=== PATIENT | male | born 1940 | race Caucasian/White ===

== ENCOUNTER 2019-10-29 07:57 | Outpatient (RCR) | payer MEDICARE, BC, SELFPAY ==
[2019-10-29 08:44] VITALS: BP 118/80; PULSE 87; RESP 16; TEMP 36.5; O2SAT 96
[2019-10-29 08:52] VITALS: PULSE 87
--- NOTE | 2019-10-29 11:27 | PCCPR ---
Addendum entered by Stefani Anderson RN 11/15/19 09:26: Spoke with Lalit today. He had a THR on 11/10 at [facility]. He was told to hold off on activity until it has been 1 month. He said he would like to resume exercise when they give him the green light. He would like to hear back from us after Dec 11. Original Note: [facility] orientation Near completion of orientation Marcus spoke of returning to [facility] to have his hip surgery and is traveling there next week to see the orthopedic surgeon to evaluate when they can proceed with his surgery. He called back later this am stating he was going to hold off on this for now until he knows what they are going to do. He is actively walking in his pool for exercise.
--- NOTE | 2019-12-23 16:56 | PCCPR ---
Patient discharged from program.
== END 2019-12-23 17:13 | disposition home or self-care (01) ==
LOC: ANHCPREHAB 07:57
PROVIDERS: Visit Provider Internal Medicine
DX: Z95.2 Presence of prosthetic heart valve (principal)
CPT/HCPCS: 93798

== ENCOUNTER 2020-05-15 13:20 | Outpatient (RCR) | payer MEDICARE, SELFPAY ==
--- NOTE | 2020-05-15 14:50 | PTOPEVAL ---
INITIAL PHYSICAL THERAPY EVALUATION Thank you for referring Marcus Orozco to [facility].? Lalit was seen for PT evaluation this date for dizziness. 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 The corrective technique was explained to Lalit and his and handout provided. I will follow up with a phone call with them next week after the ENT appointment. If further PT is desired, a plan of care will be formulated and forwarded to you for signature. I agree with above written information. Referring Physician Date Admitting Provider: Attending Provider: Hong Mason, Referring Provider: *PT Outpatient Evaluation Start: 05/15/20 13:38 Freq: Status: Active Protocol: Document 05/15/20 13:39 CASSI (Rec: 05/15/20 14:50 CASSI [id number]) Therapy Assessment Status Assessment Status Assessment Status Evaluation Outpatient Past Medical History Past Medical History Source of Past Medical History Recalled from Previous Visit, Confirmed with Patient/Family Neurological History Hx Neurological Disorders No Significant History Cardiovascular History Hx Aneurysm Yes: AV repair Hx Cardiac Surgery Yes: August Hx Cardiomyopathy Yes Hx Heart Murmur Yes: for many yrs Hx Hypertension Yes Hx Irregular Heartbeat Yes: Atrial fib and flutter post op 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 Hx Valve Replacement Yes Respiratory History Hx Sleep Apnea Yes: wears cpap at night Gastrointestinal History Hx Cholecystectomy Yes Genitourinary History Hx Other Genitourinary Disorders Yes: post heart surgery ?UTI Musculoskeletal History Hx Back Pain Yes Hx Gout Yes: takes medication Hx Joint Replacement Yes: Bilat TKA, R FELIZ Hx Orthopedic Surgery Yes Hx Spinal Surgery Yes: 2012 Hematological History Hx Other Hematological Disorders Yes: on low dose asa and coumadin Endocrine History Hx Endocrine Disorders No Significant History HEENT History Hx Cataracts Yes: both repairs + lens inplants Integumentary History Hx Skin Disorders No Significant History Psychosocial History Hx Psychiatric Disorders No Significant History Anesthesia History Hx Anesthesia Reactions No Significant History Evaluation Information Problem Diagnosis dizziness Onset ~ 1 month ago Subjective Information Rolling in bed - especially to Query Text:As Reported By Patient/ the L - will have a spinning Family
--- NOTE | 2020-06-19 08:16 | PCPTNOTE ---
Did speak with Marcus's following ENT appointment. He was to have further testing done on June 16. She was to call me, she has not. Will d/c Marcus as per initial eval.
== END 2020-07-09 11:06 | disposition home or self-care (01) ==
LOC: ANHHIPT 13:20
PROVIDERS: Visit Provider Internal Medicine
DX: R42 Dizziness and giddiness (principal)
CPT/HCPCS: 97162